=== PATIENT | female | born 1970 | race African-American/Black ===

== ENCOUNTER 2022-07-17 15:24 | Emergency (ER) | payer SELFPAY ==
[2022-07-17] MEDS ORDERED: AMLODIPINE 10 MG TAB ONE (15:48)
[2022-07-17 16:11] LABS: Absolute Lymphocytes (CBC) 2.1 K/uL (0.7-4.9); Lymphocytes % 38.1 % (15.3-44.8); MCV 85.8 fL (80-100); MPV 7.9 fL (7.6-11.3); RBC Red Blood Cell Count 4.66 M/uL (3.86-4.86)
[2022-07-17 16:27] LABS: Albumin 4.1 g/dL (3.4-5.0); Bilirubin Direct 0.1 mg/dL (0-0.2); Bilirubin Total 0.4 mg/dL (0.2-1.0); Magnesium 2.2 mg/dL (1.8-2.4); Potassium 3.4 mmol/L (3.5-5.1); Protein, Total 8.1 g/dL (6.4-8.2); Troponin High Sensitivity 5.7 pg/mL (<58.9)
--- NOTE | 2022-07-17 16:30 | RAD REPORT ---
EXAM DESCRIPTION: CT - Head Brain Wo Cont - 07/17/2022 4:17 pm CLINICAL HISTORY: headache, elevated blood pressure COMPARISON: No comparisons TECHNIQUE: All CT scans are performed using dose optimization technique as appropriate and may inclu de automated exposure control or mA/KV adjustment according to patient size. FINDINGS: No intracranial hemorrhage, hydrocephalus or extra-axial fluid collection.No areas of brai n edema or evidence of midline shift. The paranasal sinuses and mastoids are clear. The calvarium is intact. IMPRESSION: No acute intracranial abnormality.
--- NOTE | 2022-07-17 16:58 | RAD REPORT ---
EXAM DESCRIPTION: RAD - Chest Single View - 07/17/2022 4:22 pm CLINICAL HISTORY: CHEST PAIN Chest pain. COMPARISON: No comparisons FINDINGS: Portable technique limits examination quality. The lungs are grossly clear. The heart is normal in size. No displaced fractures. IMPRESSION: No acute intrathoracic process suspected.
--- NOTE | 2022-07-18 01:00 | ER ---
Nurse's Notes [facility] Name: Laila Weston Age: 51 yrs Sex: Female : 1970 Arrival Date: 07/17/2022 Time: 15:28 Bed IW1 Private MD: Diagnosis: Elevated blood-pressure reading, without diagnosis of hypertension Presentation: 07/17 15:42 Chief complaint: Patient states: High blood pressure - pt reports not having insurance ld1 so she has not filled HTN medications in over a year. C/O headache and nose bleed. Coronavirus screen: At this time, the client does not indicate any symptoms associated with coronavirus-19. Ebola Screen: No symptoms or risks identified at this time. Initial Sepsis Screen: Does the patient meet any 2 criteria? No. Patient's initial sepsis screen is negative. Does the patient have a suspected source of infection? No. Patient's initial sepsis screen is negative. Risk Assessment: Do you want to hurt yourself or someone else? Patient reports no desire to harm self or others. Onset of symptoms was July 17, 2022. 15:42 Method Of Arrival: Ambulatory ld1 15:42 Acuity: ANUPAM 3 ld1 Triage Assessment: 15:43 General: Appears in no apparent distress. comfortable, Behavior is calm, cooperative, ld1 appropriate for age. Pain: Complains of pain in face. Pain: Pain does not radiate. Pain currently is 9 out of 10 on a pain scale. Quality of pain is described as throbbing. EENT: No signs and/or symptoms were reported regarding the EENT system. Neuro: Level of Consciousness is awake, alert, obeys commands, Oriented to person, place, time, situation, Appropriate for age. Cardiovascular: Capillary refill < 3 seconds Patient's skin is warm and dry. Respiratory: Airway is patent Respiratory effort is even, unlabored. GI: Abdomen is flat, non-distended. : No signs and/or symptoms were reported regarding the genitourinary system. Derm: No signs and/or symptoms reported regarding the dermatologic system. Musculoskeletal: No signs and/or symptoms reported regarding the musculoskeletal system. 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 - Social history:: Smoking status: Patient denies any tobacco usage or history of. Patient/guardian denies using alcohol. Vital Signs: 15:42 BP 163 / 116; Pulse 89; Resp 18; Temp 98.1(O); Pulse Ox 98% on R/A; Weight 68.04 kg; ld1 Height 5 ft. 4 in. (162.56 cm); Pain 9/10; 15:42 Body Mass Index 25.75 (68.04 kg, 162.56 cm) ld1 ED Course: 15:28 Patient arrived in ED. rg4 15:30 Enzo Cheung PA is PHCP. [facility] 15:30 Brooks Gray MD is Attending Physician. [facility] 15:43 Triage completed. ld1 15:43 Arm band placed on right wrist. ld1 15:55 Inserted saline lock: 20 gauge in right antecubital area, using aseptic technique. ld1 Blood collected. 16:19 CT Head Brain wo Cont In Process Unspecified. EDMS 16:24 XRAY Chest (1 view) In Process Unspecified. EDMS Administered Medications: 15:49 Drug: amLODIPine 10 mg Route: PO; ld1 Outcome: 19:59 Discharge ordered by . ld1 19:59 Patient left the ED. ld1 Signatures: Dispatcher [employer] EDMS Enzo Cheung PA PA jmm Garcia, Rubi rg4 Georgia Higgins RN RN ld1 Corrections: (The following items were deleted from the chart) 15:43 15:43 Allergies: No Known Allergies; ld1 ld1
[2022-07-18 01:30] VITALS: BP 163/116; TEMP 98.1; O2SAT 98
--- NOTE | 2022-07-18 08:21 | EKG ---
Test Date: 2022-07-17 Test Time: 15:49:13 Suture Polisher: MARTIN MEASUREMENT RESULTS: Intervals: Rate: 88 AL: 150 QRSD: 94 QT: 388 QTc: 469 [place]: P: 67 AL: 150 QRS: -12 T: 47 INTERPRETIVE STATEMENTS: Normal sinus rhythm Incomplete right bundle branch block Borderline ECG No previous ECG available for comparison Electronically Signed On 07-18-22 08:19:47 CONTRACT DESIGNER by Aaron Mcclellan
--- NOTE | 2022-07-18 20:00 | EDPHYS ---
Physician Documentation [facility] Name: Laila Weston Age: 51 yrs Sex: Female : 1970 Arrival Date: 07/17/2022 Time: 15:28 Bed IW1 Private MD: ED Physician Brooks Gray HPI: 07/17 15:43 This 51 yrs old Black Female presents to ER via Ambulatory with complaints of High jmm Blood Pressure. 15:43 Onset: The symptoms/episode began/occurred gradually. Modifying factors: The symptoms jmm are aggravated by activity, The symptoms are alleviated by. Associated signs and symptoms: Pertinent positives: headache. The patient has experienced similar episodes in the past, a few times. The patient has not recently seen a physician, and does not have an established primary care provider. 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 - Social history:: Smoking status: Patient denies any tobacco usage or history of. Patient/guardian denies using alcohol. ROS: 15:43 Constitutional: Negative for fever, chills, and weight loss, Cardiovascular: Negative jmm for chest pain, palpitations, and edema, Respiratory: Negative for shortness of breath, cough, wheezing, and pleuritic chest pain. 15:43 Neuro: Positive for headache. 15:43 All other systems are negative. Exam: 15:43 Head/Face: atraumatic. Eyes: EOMI, no conjunctival erythema appreciated ENT: Moist jmm Mucus Membranes Neck: Trachea midline, Supple Chest/axilla: Normal chest wall appearance and motion. Cardiovascular: Regular rate and rhythm. No edema appreciated Respiratory: Normal respirations, no respiratory distress appreciated Abdomen/GI: Non distended Back: Normal ROM Skin: General appearance color normal 15:43 Constitutional: The patient appears alert, awake, uncomfortable. 15:43 Musculoskeletal/extremity: ROM: intact in all extremities. 15:43 Skin: Appearance: Color: normal in color. 15:43 Neuro: Motor: is normal. 15:43 Psych: Behavior/mood is pleasant, cooperative. Vital Signs: 15:42 BP 163 / 116; Pulse 89; Resp 18; Temp 98.1(O); Pulse Ox 98% on R/A; Weight 68.04 kg; ld1 Height 5 ft. 4 in. (162.56 cm); Pain 9/10; 15:42 Body Mass Index 25.75 (68.04 kg, 162.56 cm) ld1 MDM: 15:43 Patient medically screened. [facility] 17:00 Data reviewed: vital signs, nurses notes. Counseling: I had a detailed discussion with [facility] the patient and/or guardian regarding: the historical points, exam findings, and any diagnostic results supporting the discharge/admit diagnosis, lab results, radiology results, the need for outpatient follow up, to return to the emergency department if symptoms worsen or persist or if there are any questions or concerns that arise at home. 17:00 ED course: Headache has resolved. Patient states feeling much better. Patient will be [facility] reinitiated on her prior medication. Patient otherwise given strict return precautions. Patient understood and agrees plan of care.. 07/17 15:43 Order name: Basic Metabolic Panel; Complete Time: 16:31 [facility] 07/17 15:43 Order name: CBC with Diff; Complete Time: 16:18 [facility] 07/17 15:43 Order name: LFT's; Complete Time: 16:31 [facility] 07/17 15:43 Order name: Magnesium; Complete Time: 16:31 [facility] 07/17 15:43 Order name: NT PRO-BNP; Complete Time: 16:31 [facility] 07/17 15:43 Order name: PT-INR; Complete Time: 16:18 [facility] 07/17 15:43 Order name: Troponin HS; Complete Time: 16:31 [facility] 07/17 15:43 Order name: XRAY Chest (1 view); Complete Time: 17:00 [facility] 07/17 15:43 Order name: EKG; Complete Time: 15:44 [facility] 07/17 15:43 Order name: EKG - Nurse/Tech; Complete Time: 15:49 [facility] 07/17 15:43 Order name: IV Saline Lock; Complete Time: 15:55 [facility] 07/17 15:44 Order name: CT Head Brain wo Cont; Complete Time: 16:46 [facility] 07/17 15:43 Order name: Labs collected and sent; Complete Time: 15:55 [facility] 07/17 15:43 Order name: O2 Per Protocol; Complete Time: 15:55 [facility] 07/17 15:43 Order name: O2 Sat Monitoring; Complete Time: 15:55 [facility] Administered Medications: 15:49 Drug: amLODIPine 10 mg Route: PO; ld1 Disposition: 07/18 10:26 Co-signature as Attending Physician, Brooks Gray MD. rn Disposition Summary: 07/17/22 19:59 Discharge Ordered Location: Home ld1 Condition: Stable ld1 Diagnosis - Elevated blood-pressure reading, without diagnosis of hypertension ld1 Forms: - Medication Reconciliation Form ld1 - Thank You Letter ld1 - Antibiotic Education ld1 - Prescription Opioid Use ld1 Signatures: Dispatcher [employer] EDMS Enzo Cheung PA PA jmm Nieto, Roman, MD MD rn Dibbern, Lauren, RN RN ld1 Corrections: (The following items were deleted from the chart) 07/17 15:43 15:43 Allergies: No Known Allergies; ld1 ld1
== END 2022-07-17 19:59 | disposition home or self-care (01) ==
LOC: ER 15:24
DX: I10 Essential (primary) hypertension (principal); Z91.013 Allergy to seafood
CPT/HCPCS: 36415; 70450; 71045; 80048; 80076; 83735; 83880; 84484; 85025; 85610; 93005; 99284

== ENCOUNTER 2022-11-20 11:04 | Emergency (ER) | payer OTHER, SELFPAY ==
[2022-11-20 12:19] LABS: SARS-COV-2 RT PCR NEGATIVE (NEGATIVE)
--- NOTE | 2022-11-20 12:27 | RAD REPORT ---
EXAM DESCRIPTION: RAD - Chest Pa And Lat (2 Views) - 11/20/2022 12:20 pm CLINICAL HISTORY: cough, body aches, fever Chest pain. COMPARISON: <Comparisons> FINDINGS: Interstitial markings mildly prominent suggesting mild viral infection. The heart is andry l in size. There is a prominent wedge-shaped compression deformity midthoracic spine, probably old.
--- NOTE | 2022-11-20 13:02 | EDPHYS ---
Physician Documentation [facility] Name: Laila Weston Age: 51 yrs Sex: Female : 1970 Arrival Date: 11/20/2022 Time: 11:08 Bed 12 Private MD: ED Physician Karson Latham HPI: 11/20 12:55 This 51 yrs old Black Female presents to ER via Ambulatory with complaints of Fever, jmm Chest Congestion, bodyaches. 12:55 The patient reports fever. Onset: The symptoms/episode began/occurred gradually, 2 jmm week(s) ago. This is a 51 year old female with a history of htn that presents to the ED with complaints of cough, sob beginning approx 2 weeks ago with fever beginning last night. Denies vomiting. Denies chest pain. . Historical: - Allergies: 11:23 SHELLFISH; iw - PMHx: 11:23 Hypertensive disorder; iw - Immunization history:: Client reports receiving the 2nd dose of the Covid vaccine. - Social history:: Smoking status: Reported history of juuling and/or vaping. Patient uses street drugs, marijuana. ROS: 12:55 Constitutional: Positive for body aches, fever. jmm 12:55 Respiratory: Positive for cough, shortness of breath. 12:55 All other systems are negative. Exam: 12:55 Constitutional: This is a well developed, well nourished patient who is awake, alert, jmm and in no acute distress. Head/Face: atraumatic. Eyes: EOMI, no conjunctival erythema appreciated ENT: Moist Mucus Membranes Neck: Trachea midline, Supple Chest/axilla: Normal chest wall appearance and motion. Cardiovascular: Regular rate and rhythm. No edema appreciated 12:55 Abdomen/GI: Non distended Back: Normal ROM Skin: General appearance color normal 12:55 Respiratory: the patient does not display signs of respiratory distress, Respirations: normal, Breath sounds: are clear throughout. 12:55 Musculoskeletal/extremity: ROM: intact in all extremities. 12:55 Skin: Appearance: Color: normal in color. 12:55 Neuro: Motor: is normal. Vital Signs: 11:24 BP 128 / 93; Pulse 97; Resp 16; Temp 98.7; Pulse Ox 100% on R/A; Weight 65.77 kg; iw Height 5 ft. 4 in. ; Pain 3/10; 11:24 Body Mass Index 24.89 (65.77 kg, 162.56 cm) iw 11:24 Pain Scale: Adult MDM: 11:09 Patient medically screened. bs3 13:00 Differential diagnosis: bronchitis, pneumonia. Data reviewed: vital signs, nurses [facility] notes, lab test result(s), radiologic studies, plain films. I considered the following discharge prescriptions or medication management in the emergency department Medications were administered in the Emergency Department. See MAR. Independent interpretation of the following test(s) in the Emergency Department X-Ray: My interpretation is infiltrates noted. Counseling: I had a detailed discussion with the patient and/or guardian regarding: the historical points, exam findings, and any diagnostic results supporting the discharge/admit diagnosis, the need for outpatient follow up, to return to the emergency department if symptoms worsen or persist or if there are any questions or concerns that arise at home. 11/20 11:13 Order name: COVID-19/FLU A+B; Complete Time: 12:19 [facility] 11/20 11:20 Order name: Chest Pa And Lat (2 Views) XRAY; Complete Time: 12:29 [facility] Administered Medications: 12:25 Drug: Levalbuterol Inhalation 1.25 mg Route: Inhalation; Disposition Summary: 11/20/22 13:01 Discharge Ordered Location: Home [facility] Condition: Stable [facility] Diagnosis - Cough [facility] Followup: [facility] - With: Private Physician - When: 2 - 3 days - Reason: Recheck today's complaints, Continuance of care, Re-evaluation by your physician Discharge Instructions: - Discharge Summary Sheet [facility] - Cough, Adult [facility] Forms: - Medication Reconciliation Form [facility] - Thank You Letter [facility] - Antibiotic Education [facility] - Prescription Opioid Use [facility] - Work release form Prescriptions: - cefdinir 300 mg Oral capsule - take 1 capsule by ORAL route 2 times per day for 10 days; 20 capsule; Refills: [facility] 0, Product Selection Permitted - promethazine-DM 6.25-15 mg/5 mL Oral syrup - administer 5 milliliter by ORAL route every 4-6 hours As needed; 200 jmm milliliter; Refills: 0, Product Selection Permitted Signatures: Dispatcher [employer] Enzo Chance PA PA jmm Williams, Irene, RN RN iw Latham, Karson, MD MD bs3
--- NOTE | 2022-11-20 13:02 | ER ---
Nurse's Notes [facility] Name: Laila Weston Age: 51 yrs Sex: Female : 1970 Arrival Date: 11/20/2022 Time: 11:08 Bed 12 Private MD: Diagnosis: Cough Presentation: 11/20 11:22 Chief complaint: Patient states: aching, chills, cough X 2 weeks, fever yesterday, iw fatigue pain in lower back. Coronavirus screen: Client presents with at least one sign or symptom that may indicate coronavirus-19. Ebola Screen: Patient negative for fever greater than or equal to 101.5 degrees Fahrenheit, and additional compatible Ebola Virus Disease symptoms Patient denies exposure to infectious person. Patient denies travel to an Ebola-affected area in the 21 days before illness onset. No symptoms or risks identified at this time. 11:22 Method Of Arrival: Ambulatory iw 11:22 Initial Sepsis Screen: Does the patient meet any 2 criteria? No. Patient's initial iw sepsis screen is negative. Does the patient have a suspected source of infection? No. Patient's initial sepsis screen is negative. Risk Assessment: Do you want to hurt yourself or someone else? Patient reports no desire to harm self or others. Onset of symptoms was November 06, 2022. 11:22 Acuity: ANUPAM 4 iw Triage Assessment: 11:35 General: Appears in no apparent distress. Behavior is calm, cooperative. iw Historical: - Allergies: 11:23 SHELLFISH; iw - PMHx: 11:23 Hypertensive disorder; iw - Immunization history:: Client reports receiving the 2nd dose of the Covid vaccine. - Social history:: Smoking status: Reported history of juuling and/or vaping. Patient uses street drugs, marijuana. Screenin:15 [facility] ED Fall Risk Assessment (Adult) History of falling in the last 3 months, iw including since admission No falls in past 3 months (0 pts). Abuse screen: Denies threats or abuse. Denies injuries from another. Nutritional screening: No deficits noted. Tuberculosis screening: No symptoms or risk factors identified. Assessment: 11:30 General: Appears in no apparent distress. Behavior is calm, cooperative. Pain: Denies iw pain. Neuro: Level of Consciousness is awake, alert, obeys commands, Oriented to person, place, time, situation, Moves all extremities. Cardiovascular: Patient's skin is warm and dry. Respiratory: Respiratory effort is even, unlabored, Respiratory pattern is regular, symmetrical. Vital Signs: 11:24 BP 128 / 93; Pulse 97; Resp 16; Temp 98.7; Pulse Ox 100% on R/A; Weight 65.77 kg; iw Height 5 ft. 4 in. ; Pain 3/10; 11:24 Body Mass Index 24.89 (65.77 kg, 162.56 cm) iw 11:24 Pain Scale: Adult iw ED Course: 11:08 Patient arrived in ED. am2 11:11 Enzo Cheung PA is PHCP. [facility] 11:11 Karson Latham MD is Attending Physician. [facility] 11:23 Triage completed. iw 11:23 Arm band placed on. iw 11:30 Patient has correct armband on for positive identification. iw 11:30 COVID-19/FLU A+B Sent. zm 11:33 Nila Waller, RN is Primary Nurse. iw 12:21 Chest Pa And Lat (2 Views) XRAY In Process Unspecified. EDMS 13:15 No provider procedures requiring assistance completed. Patient did not have IV access iw during this emergency room visit. Administered Medications: 12:25 Drug: Levalbuterol Inhalation 1.25 mg Route: Inhalation; iw Medication: 11:30 VIS not applicable for this client. iw Outcome: 13:01 Discharge ordered by MD. m 13:15 Discharged to home ambulatory. iw 13:15 Condition: good 13:15 Discharge instructions given to patient, Instructed on discharge instructions, follow up and referral plans. Demonstrated understanding of instructions, follow-up care, medications, Prescriptions given X 2. 13:16 Patient left the ED. ap3 Signatures: Dispatcher [employer] EDMS Enzo Cheung PA PA jmm Williams, Irene, RN RN iw [place] am2 [place] RN RN ap3 Marge Razo Corrections: (The following items were deleted from the chart) 11/21 07:55 11/20 13:15 Discharge instructions given to patient, Instructed on discharge iw instructions, follow up and referral plans. Demonstrated understanding of instructions, follow-up care, medications, Prescriptions given X iw
[2022-11-20 14:00] VITALS: BP 128/93; TEMP 98.7; O2SAT 100
== END 2022-11-20 13:16 | disposition home or self-care (01) ==
LOC: ER 11:04
DX: R05.9 Cough, unspecified (principal); R50.9 Fever, unspecified; I10 Essential (primary) hypertension; Z20.822 Contact with and (suspected) exposure to COVID-19; Z91.013 Allergy to seafood
CPT/HCPCS: 0240U; 71046

== ENCOUNTER 2023-02-23 07:22 | Emergency (ER) | payer OTHER ==
--- OUTSIDE RECORDS SUMMARY | 2023-02-23 07:25 | XMS REPORT | Continuity of Care Document ---
:1970 Author Organization [facility] t Address [address] [place] [address] Care Team Providers Name Role Phone Unavailable Unavailable Unavailable Problems This patient has no known problems. Allergies, Adverse Reactions, Alerts This patient has no known allergies or adverse reactions. Medications This patient has no known medications. Procedures This patient has no known procedures. Encounters Start End Encounter Admission Attending Care Care Encounter Source Date/Time Date/Time Type Type Clinicians Facility Department ID 2023-01-04 2023-01-04 Outpatient [facility] [id number] [place] 09:35:21 09:35:21 [id number] F César 2023-01-03 2023-01-03 Outpatient [facility] [id number] Ryan 08:30:07 08:30:07 [id number] F César Results Test Description Test Time Test Comments Results Result Comments Source LIPID PANEL 2023-01-04 19:09:53 Test Item Value Reference Range Interpretation Comme nts CHOLESTEROL (test code = 2210) 205 MG/DL <200 H TRIGLYCERIDES (test code = 2232) 64 MG/DL <150 HDL CHOLESTEROL (test code = 85 MG/DL >39 2220) CALC LDL CHOL (test code = 2237) 105 MG/DL <100 H NOTE: CALCULATED LDL IS BASED ON BRO-MERCADO METHOD WHICHINCLUDES A DJUSTABLE TRIGLYCERIDE:VL DL CHOLESTEROL RATIO.THIS FACT OR VARIES BY MEASURED TRIGLY CERIDE AND NON-HDLCHOLESTE ROL CONCENTRATIONS WITH INCREASED CALCULATED LDL SEENIN HIGHER T RIGLYCERIDE OR LOWER NON-HDL S PECIMENS. FOR MOREINFORMATION , SEE CLIENT ANNOUNCEMENT AT [email or web address] RATIO LDL/HDL (test code = 1.24 RATIO <3.22 2238) COMPREHENSIVE METABOLIC [id number] 19:09:53 Test Item Value Reference Range Interpretation Comments GLUCOSE (test code = 100 MG/DL 70-99 H 2216) BUN (test code = 12 MG/DL 6-20 2207) CREATININE (test 0.66 MG/DL 0.60-1.30 code = 2213) eGFR (2020 CKD-EPI) 106 >60 (test code = 67100) ML/MIN/1.73 CALC BUN/CREAT (test 18 RATIO 6-28 code = 2235) SODIUM (test code = 143 MEQ/L [phone]) POTASSIUM (test code 4.3 MEQ/L 3.5-5.4 = 2227) CHLORIDE (test code 104 MEQ/L 95-107 = 2214) CARBON DIOXIDE (test 19 MEQ/L 19-31 code = 2205) CALCIUM (test code = 9.8 MG/DL 8.5-10.5 2208) PROTEIN, TOTAL (test 6.7 G/DL 6.1-8.3 code = 2228) ALBUMIN (test code = 4.4 G/DL 3.5-5.2 2200) CALC GLOBULIN (test 2.3 G/DL 1.9-3.7 code = 224) CALC A/G RATIO (test 1.9 RATIO 1.0-2.6 code = 223) BILIRUBIN, TOTAL 0.2 MG/DL See_Comment [Automated message] (test code = 2207) The syste [employer] which generated this result transmitted ref erence range: <=1.2. T he reference range was not used to int erpret this result as normal/abnormal . ALKALINE PHOSPHATASE 79 U/L 40-130 (test code = 2203) AST (test code = 20 U/L 9-40 2217) ALT (test code = 11 U/L 5-40 CPL francisco s 2218) important patho logy staff changes effective 11/01. New patholo gy staff will prov moriah uninterrupted, excellent patie nt care and clinic al consultation. S ee URL: [email or web address]. UNLE SS OTHERWISE INDIC ATED, ALL TESTING PER FORMED AT [facility] [employer], [address] [place]. [address] [place] [address] HAN AGUILAR DIRECTOR: Trevon LUTHER LUIS NUMBER [id number] CAP ACCREDITATION N O. [id number] HEPATITIS C [id number] 06:45:41 Test Item Value Reference Range Interpretation Comments HEPATITIS C ANTIBODY (test code NON-REACTIVE NON-REACTIVE = 4675) HIV 1/2 4TH GEN, RFLX [id number] 06:45:41 Test Item Value Reference Range Interpretation Comments HIV 1/2 4TH GEN, RFLX CONF (test NON-REACTIVE NON-REACTIVE code = 3514) HEMOGLOBIN [id number] 05:40:32 Test Item Value Reference Range Interpretation Comments HEMOGLOBIN A1c (test 6.1 % 4.2-5.6 H AMERIC AN DIABETES code = 80426) ASSOCIATION [employer] FOR HGB A1C: PREDIABETES/INC REASED RISK . . . . . . . 5.7 -6.4% DIAGNOSIS OF DI ABETES . . . . . . . . . >=6 .5% WITH CONFIRMATION OR APPROPRIATE SYMPTOMS NOTE: ASSAY MAY BE AFFECTED BY HEMOGLOBINOPATH IES (SICKLE CELL ANEMIA, S- C DISEASE, OTHERS) OR ADITI FICIALLY LOWERED BY DECR EASED RED CELL SURVIVAL ( HEMOLYTIC ANEMIAS, BLOOD LOSS, ETC.). CONSIDER ALTERN ATE TESTING OR LABORATORY C ONSULTATION. CBC W/AUTO DIFF WITH [id number] 04:44:44 Test Item Value Reference Range Interpretation Comments WBC (test code = 4.4 K/UL 3.5-11.0 1001) RBC (test code = 4.24 M/UL 3.80-5.40 1002) HEMOGLOBIN (test code 11.8 G/DL 11.5-15.5 = 1003) HEMATOCRIT (test code 36.7 % 34.0-45.0 = 1004) MCV (test code = 86.6 fL 80.0-99.0 1005) MCH (test code = 27.8 PG 25.0-33.0 1006) MCHC (test code = 32.2 G/DL 31.0-36.0 1007) RDW (test code = 13.4 % 11.5-15.0 1038) NEUTROPHILS (test 38.7 % code = 1008) LYMPHOCYTES (test 48.4 % code = 1010) MONOCYTES (test code 8.8 % = 1011) EOSINOPHILS (test 3.2 % code = 1012) BASOPHILS (test code 0.7 % = 1013) IMMATURE GRANULOCYTES 0.2 % (test code = 1036) NUCLEATED RBCS (test 0.0 /100 WBC'S See_Comment [Aut omated code = 1065) message] The sy stem which generated this result transmitted reference range : 0.0. The refere nce range was not u sed to interpret th is result as normal/abnormal . PLATELET COUNT (test 203 K/UL 130-400 code = 1015) ABSOLUTE NEUTROPHILS 1.71 K/UL 1.50-7.50 (test code = 1066) ABSOLUTE LYMPHOCYTES 2.14 K/UL 1.00-4.00 (test code = 1067) ABSOLUTE MONOCYTES 0.39 K/UL 0.20-1.00 (test code = 1068) ABSOLUTE EOSINOPHILS 0.14 K/UL 0.00-0.50 (test code = 1040) ABSOLUTE BASOPHILS 0.03 K/UL 0.00-0.20 (test code = 1069) ABS IMMATURE 0.01 K/UL 0.00-0.10 GRANULOCYTES (test code = 1020) ABS NUCLEATED RBCS 0.00 K/UL 0.00-0.11 (test code = 20251)
--- NOTE | 2023-02-23 08:21 | RAD REPORT ---
EXAM DESCRIPTION: CT - Head Brain Wo Cont - 02/23/2023 8:01 am CLINICAL HISTORY: DIZZINESS COMPARISON: Head Brain Wo Cont dated 07/17/2022 TECHNIQUE: Noncontrast head CT images were obtained without IV contrast. Multiplanar reformats were generated and reviewed. All CT scans are performed using dose optimization technique as appropriate and may include automated exposure control or mA/KV adjustment according to patient size. FINDINGS: No intracranial hemorrhage, mass, or edema. Midline structures are unremarkable. Normal ventricular caliber for age. Araya-white matter differentiation is preserved, without evidence of acute infarct. No abnormal extra- axial fluid collections. Mastoid air cells and visualized portions of the paranasal sinuses are clear. No acute bony findings. IMPRESSION: No evidence of an acute intracranial process.
[2023-02-23] MEDS ORDERED: MECLIZINE HCL 12.5 MG TAB ONE (09:07)
[2023-02-23] MEDS ORDERED: NA CHLORIDE 0.9% 1,000 ML ONE (09:08)
--- NOTE | 2023-02-23 09:26 | RAD REPORT ---
EXAM DESCRIPTION: MRI - Brain Wo Cont - 02/23/2023 8:56 am CLINICAL HISTORY: DIZZINESS COMPARISON: Head CT of the same day TECHNIQUE: Multiplanar multisequence MRI of the brain performed without IV contrast, utilizing rapid stroke protocol. FINDINGS: No evidence of acute infarct or other diffusion signal abnormality. No evidence of acute intracranial hemorrhage or findings to suggest abnormal extra-axial fluid collec tions. Ventricular caliber within normal for age. Midline structures are unremarkable. Scattered subcortical and deep white matter T2/FLAIR hyperintensities, nonspecific, but suggestive of chronic small vessel ischemic changes. No mass effect or midline shift. Mastoid air cells and paranasal sinuses are clear. IMPRESSION: No acute intracranial process. No evidence of ventriculomegaly or mass effect. Nonspecific few deep white matter T2 hyperintensities, most suggestive of chronic small vessel ischem ic changes.
--- NOTE | 2023-02-23 09:27 | RAD REPORT ---
EXAM DESCRIPTION: RADChest Single View02/23/2023 9:14 am CLINICAL HISTORY: dizziness COMPARISON: Chest Pa And Lat (2 Views) dated 11/20/2022; Chest Single View dated 07/17/2022 TECHNIQUE: Portable AP view of the chest. FINDINGS: The lungs are clear. No pneumothorax or effusion. The cardiomediastinal contours are unrem arkable. Surgical clips projecting over the right lung base, previously demonstrated to be within the right breast soft tissues. IMPRESSION: No acute cardiopulmonary process.
[2023-02-23 11:19] LABS: Absolute Lymphocytes (CBC) 1.9 K/uL (0.7-4.9); Hematocrit 40.1 % (36.0-45.0); Lymphocytes % 46.2 % (15.3-44.8); MCV 86.7 fL (80-100); MPV 7.6 fL (7.6-11.3); RBC Red Blood Cell Count 4.63 M/uL (3.86-4.86)
[2023-02-23 11:25] LABS: Protime INR 0.89
[2023-02-23 12:21] LABS: Albumin 3.9 g/dL (3.4-5.0); Bilirubin Direct 0.1 mg/dL (0-0.2); Bilirubin Indirect, Calculated 0.3 mg/dL (0.2-0.8); Bilirubin Total 0.4 mg/dL (0.2-1.0); Magnesium 2.2 mg/dL (1.6-2.4); Potassium 4.2 mEq/L (3.5-5.1); Troponin High Sensitivity 5.4 pg/mL (<58.9)
--- NOTE | 2023-02-23 13:04 | ER ---
Nurse's Notes [facility] Name: Laila Weston Age: 52 yrs Sex: Female : 1970 Arrival Date: 02/23/2023 Time: 07:22 Bed 6 Private MD: Diagnosis: Vertigo Presentation: 02/23 07:33 Chief complaint: Patient states: Dry cough, dizzy since 4 AM. Coronavirus screen: ll1 Vaccine status: Patient reports receiving the 2nd dose of the covid vaccine. Client denies travel out of the [place] in the last 14 days. cough unrelated to allergies, Client presents with at least one sign or symptom that may indicate coronavirus-19. Standard/surgical mask placed on the client. Ebola Screen: Patient denies travel to an Ebola-affected area in the 21 days before illness onset. Initial Sepsis Screen: Does the patient meet any 2 criteria? No. Patient's initial sepsis screen is negative. Does the patient have a suspected source of infection? Yes: Productive cough/pneumonia. Risk Assessment: Do you want to hurt yourself or someone else? Patient reports no desire to harm self or others. Onset of symptoms was February 23, 2023. 07:33 Method Of Arrival: Wheelchair ll1 07:33 Acuity: ANUPAM 3 ll1 Triage Assessment: 07:34 General: Appears in no apparent distress. Behavior is calm, cooperative, appropriate ll1 for age. Pain: Denies pain. Neuro: Reports dizziness. Respiratory: Reports cough that is dry. Historical: - Allergies: 07:26 SHELLFISH; ll1 - PMHx: 07:26 Hypertensive disorder; ll1 - Immunization history:: Adult Immunizations up to date. - Social history:: Smoking status: Patient denies any tobacco usage or history of. - Family history:: not pertinent. - Hospitalizations: : No recent hospitalization is reported. Screenin:26 [facility] ED Fall Risk Assessment (Adult) History of falling in the last 3 months, ko1 including since admission No falls in past 3 months (0 pts) Confusion or Disorientation No (0 pts) Intoxicated or Sedated No (0 pts) Impaired Gait No (0 pts) Mobility Assist Device Used Yes (1 pt) Altered Elimination No (0 pt) Score/Fall Risk Level 0 - 2 = Low Risk Oriented to surroundings, Maintained a safe environment, Educated pt \T\ family on fall prevention, incl call for assistance when getting out of bed, Assessed \T\ reinforced patient's understanding of fall precautions, Provided non-skid footwear, Hourly rounding (assess needs \T\ fall precautionary measures) done, Used ambulatory aids as needed (educated on \T\ assisted with), Used gait belt as appropriate. Abuse screen: Denies threats or abuse. Denies injuries from another. Nutritional screening: No deficits noted. Tuberculosis screening: No symptoms or risk factors identified. Assessment: 08:26 General: Appears in no apparent distress. comfortable, Behavior is calm, cooperative, ko1 appropriate for age. Pain: Denies pain. Neuro: Reports dizziness, since 4 am. Cardiovascular: Reports lightheadedness. Respiratory: No deficits noted. GI: No deficits noted. : No deficits noted. EENT: No deficits noted. Derm: No deficits noted. Musculoskeletal: No deficits noted. 09:44 Reassessment: Patient appears in no apparent distress at this time. No changes from ko1 previously documented assessment. Patient and/or family updated on plan of care and expected duration. Pain level reassessed. Patient is alert, oriented x 3, equal unlabored respirations, skin warm/dry/pink. Vital Signs: 07:25 BP 140 / 93; Pulse 72; Resp 18; Pulse Ox 99% ; ko1 07:33 BP 140 / 93; Pulse 75; Resp 16; Temp 98; Pulse Ox 97% ; Weight 62.6 kg; Height 5 ft. 4 ll1 in. ; Pain 0/10; 08:00 BP 131 / 90; Pulse 76; Resp 18; Pulse Ox 100% ; ko1 09:21 BP 146 / 101; Pulse 60; Resp 18; Pulse Ox 99% on R/A; ld1 09:44 BP 146 / 101; Pulse 68; Resp 16; Pulse Ox 99% ; ko1 11:58 BP 138 / 94; Pulse 72; Resp 18; Pulse Ox 100% ; ko1 07:33 Body Mass Index 23.69 (62.60 kg, 162.56 cm) ll1 07:33 Pain Scale: Adult ll1 ED Course: 07:25 Patient arrived in ED. im 07:26 Brooks Gray MD is Attending Physician. rn 07:26 Arm band placed on Patient placed in an exam room, on a stretcher. ll1 07:34 Triage completed. ll1 07:43 Georgia Fitzpatrick, RN is Primary Nurse. ld1 08:01 CT Head Brain wo Cont In Process Unspecified. EDMS 08:19 Magaly Gandhi, AMY is Primary Nurse. ko1 08:26 Patient has correct armband on for positive identification. Fall risk band placed. Bed ko1 in low position. Call light in reach. Side rails up X 1. Client placed on continuous cardiac and pulse oximetry monitoring. NIBP monitoring applied. color television console monitor on. Door closed. Noise minimized. Lights dimmed. Warm blanket given. 08:47 Brain Wo Cont MRI In Process Unspecified. EDMS 08:57 Inserted saline lock: 22 gauge in right antecubital area, using aseptic technique. ld1 Blood collected. 09:16 Chest Single View XRAY In Process Unspecified. EDMS 11:14 IV discontinued, intact, bleeding controlled, No redness/swelling at site. Pressure ko1 dressing applied. 11:14 Inserted saline lock: 22 gauge in left antecubital area, using aseptic technique. Blood ko1 collected. 13:03 Ozzy Benitez MD is Referral Physician. rn 13:16 No provider procedures requiring assistance completed. IV discontinued, intact, ko1 bleeding controlled, No redness/swelling at site. Pressure dressing applied. Administered Medications: 09:05 Drug: Meclizine PO 50 mg Route: PO; ld1 12:41 Follow up: Response: No adverse reaction ko1 09:05 Drug: NS 0.9% IV 1000 ml Route: IV; Rate: 1000 ml; Site: right antecubital; ld1 12:41 Follow up: IV Status: Completed infusion; IV Intake: 1000ml ko1 Medication: 08:26 VIS not applicable for this client. ko1 Intake: 12:41 IV: 1000ml; Total: 1000ml. ko1 Outcome: 13:03 Discharge ordered by . rn 13:16 Discharged to home ambulatory. ko1 13:16 Condition: stable 13:16 Discharge instructions given to patient, Instructed on discharge instructions, follow up and referral plans. Demonstrated understanding of instructions, follow-up care, medications, Prescriptions given X 1. 13:25 Patient left the ED. ko1 Signatures: Dispatcher [employer] EDMS Brooks Gray MD MD rn Lewis, Lynsay, RN RN [facility] Georgia Fitzpatrick RN RN [email or web address] Magaly Gandhi RN RN ko1 Barbara Garcia Corrections: (The following items were deleted from the chart) 08:32 08:26 Pain: Denies pain. ko1 ko1
--- NOTE | 2023-02-23 13:04 | EDPHYS ---
Physician Documentation [facility] Name: Laila Weston Age: 52 yrs Sex: Female : 1970 Arrival Date: 02/23/2023 Time: 07:22 Bed 6 Private MD: ED Physician Brooks Gray HPI: 02/23 09:25 This 52 yrs old Black Female presents to ER via Wheelchair with complaints of Dizziness.rn 09:25 The patient presents with feeling off balance, sense of spinning. Onset: The rn symptoms/episode began/occurred this morning. Modifying factors: The symptoms are alleviated by holding head still, the symptoms are aggravated by movement of head. Associated signs and symptoms: Pertinent negatives: blurred vision, chest pain, focal weakness, head injury, headache, numbness, seizure, shortness of breath, syncope. Severity of symptoms: At their worst the symptoms were moderate in the emergency department the symptoms have improved. The patient has not experienced similar symptoms in the past. Pt reports felt fine last night, woke up this morning and attempted to get out of bed, hit with dizziness, sensation of spinning, assoc with nausea, improves when lays down and doesn't move, has never happened before. No focal neuro complaint otherwise. NO chest pain. No head injury. No vision or speech changes. Feels better but has not resolved. . Historical: - Allergies: 07:26 SHELLFISH; ll1 - PMHx: 07:26 Hypertensive disorder; ll1 - Immunization history:: Adult Immunizations up to date. - Social history:: Smoking status: Patient denies any tobacco usage or history of. - Family history:: not pertinent. - Hospitalizations: : No recent hospitalization is reported. ROS: 09:25 Constitutional: Negative for fever, chills, and weight loss, Eyes: Negative for injury, rn pain, redness, and discharge, Neck: Negative for injury, pain, and swelling, Cardiovascular: Negative for chest pain, palpitations, and edema, Respiratory: Negative for shortness of breath, cough, wheezing, and pleuritic chest pain, Abdomen/GI: Negative for abdominal pain, vomiting, diarrhea, and constipation, Back: Negative for injury and pain, MS/Extremity: Negative for injury and deformity, Skin: Negative for injury, rash, and discoloration, Neuro: Negative for headache, weakness, numbness, tingling, and seizure. Exam: 08:42 ECG was reviewed by the Attending Physician. rn 09:25 Constitutional: This is a well developed, well nourished patient who is awake, alert, rn and in no acute distress. Head/Face: Normocephalic, atraumatic. Eyes: Pupils equal round and reactive to light, extra-ocular motions intact. Periorbital areas with no swelling, redness, or edema. Cardiovascular: Regular rate and rhythm. No pulse deficits. Respiratory: No increased work of breathing, no retractions or nasal flaring. Skin: Warm, dry MS/ Extremity: Pulses equal, no cyanosis. Neuro: Awake and alert, GCS 15, oriented to person, place, time, and situation. Cranial nerves II-XII grossly intact. Motor strength 5/5 in all extremities. Sensory grossly intact. Cerebellar exam normal. Reproducible dizziness when laying down and moving head to left. Vital Signs: 07:25 BP 140 / 93; Pulse 72; Resp 18; Pulse Ox 99% ; ko1 07:33 BP 140 / 93; Pulse 75; Resp 16; Temp 98; Pulse Ox 97% ; Weight 62.6 kg; Height 5 ft. 4 ll1 in. ; Pain 0/10; 08:00 BP 131 / 90; Pulse 76; Resp 18; Pulse Ox 100% ; ko1 09:21 BP 146 / 101; Pulse 60; Resp 18; Pulse Ox 99% on R/A; ld1 09:44 BP 146 / 101; Pulse 68; Resp 16; Pulse Ox 99% ; ko1 11:58 BP 138 / 94; Pulse 72; Resp 18; Pulse Ox 100% ; ko1 07:33 Body Mass Index 23.69 (62.60 kg, 162.56 cm) ll1 07:33 Pain Scale: Adult ll1 MDM: 07:26 Patient medically screened. rn 13:01 Differential diagnosis: cardiac arrhythmia, generalized weakness, hypovolemia, rn idiopathic dizziness, TIA, vertigo. Data reviewed: vital signs, nurses notes, lab test result(s), radiologic studies, CT scan, MRI, and as a result, I will discharge patient. Counseling: I had a detailed discussion with the patient and/or guardian regarding: the historical points, exam findings, and any diagnostic results supporting the discharge/admit diagnosis, lab results, radiology results, the need for outpatient follow up, to return to the emergency department if symptoms worsen or persist or if there are any questions or concerns that arise at home. Response to treatment: the patient's symptoms have markedly improved after treatment, and as a result, I will discharge patient. Special discussion: I discussed with the patient/guardian in detail that at this point there is no indication for admission to the hospital. It is understood, however, that if the symptoms persist or worsen the patient needs to return immediately for re-evaluation. Based on the history and exam findings, there is no indication for further emergent testing or inpatient evaluation. I discussed with the patient/guardian the need to see the neurologist for further evaluation of the symptoms. 02/23 07:46 Order name: Basic Metabolic Panel; Complete Time: 13:02/23 07:46 Order name: CBC with Diff; Complete Time: 13:02/23 07:46 Order name: Hepatic Function; Complete Time: 13:02/23 07:46 Order name: Magnesium; Complete Time: 13:02/23 07:46 Order name: Protime (+inr); Complete Time: 13:02/23 07:46 Order name: Ptt, Activated; Complete Time: 13:02/23 07:46 Order name: Troponin High Sensitivity; Complete Time: 13:02/23 07:46 Order name: CT Head Brain wo Cont; Complete Time: 08:42 02/23 07:46 Order name: Chest Single View XRAY; Complete Time: 09:28 02/23 07:46 Order name: Brain Wo Cont MRI; Complete Time: 09:28 02/23 07:46 Order name: EKG; Complete Time: 07:46 02/23 07:46 Order name: Cardiac monitoring; Complete Time: 07:58 02/23 07:46 Order name: EKG - Nurse/Tech; Complete Time: 08:24 02/23 07:46 Order name: IV Saline Lock; Complete Time: 08:57 02/23 07:46 Order name: Labs collected and sent; Complete Time: 08:57 02/23 07:46 Order name: O2 Per Protocol; Complete Time: 07:58 02/23 07:46 Order name: O2 Sat Monitoring; Complete Time: :58 rn EC:42 Rate is 71 beats/min. Rhythm is regular. QRS [place] is Normal. PA interval is normal. QRS rn interval is normal. QT interval is normal. No Q waves. T waves are Normal. No ST changes noted. Clinical impression: NSR w/ Non-specific ST/T Changes. Interpreted by me. Administered Medications: 09:05 Drug: Meclizine PO 50 mg Route: PO; ld1 12:41 Follow up: Response: No adverse reaction ko1 09:05 Drug: NS 0.9% IV 1000 ml Route: IV; Rate: 1000 ml; Site: right antecubital; ld1 12:41 Follow up: IV Status: Completed infusion; IV Intake: 1000ml ko1 Disposition Summary: 02/23/23 13:03 Discharge Ordered Location: Home rn Problem: new rn Symptoms: have improved rn Condition: Stable rn Diagnosis - Vertigo rn Followup: rn - With: Ozzy Benitez MD - When: As needed - Reason: Recheck today's complaints, Re-evaluation by your physician Discharge Instructions: - Discharge Summary Sheet rn - Vertigo rn Forms: - Medication Reconciliation Form rn - Thank You Letter rn - 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
[2023-02-23 13:32] VITALS: TEMP 98
[2023-02-23 13:39] VITALS: BP 138/94; O2SAT 100
--- NOTE | 2023-02-25 14:26 | EKG ---
Test Date: 2023-02-23 Test Time: 08:26:14 Gas Operations Analyst: GENET MEASUREMENT RESULTS: Intervals: Rate: 71 MA: 156 QRSD: 94 QT: 418 QTc: 454 [place]: P: 53 MA: 156 QRS: -6 T: 39 INTERPRETIVE STATEMENTS: Normal sinus rhythm Septal infarct, age undetermined Abnormal ECG Compared to ECG 07/17/2022 15:49:13 Myocardial infarct finding now present Incomplete right bundle-branch block no longer present Electronically Signed On 02-25-23 14:24:12 CDT by Ramón Leyva
== END 2023-02-23 13:25 | disposition home or self-care (01) ==
LOC: ER 07:22
DX: R42 Dizziness and giddiness (principal); I10 Essential (primary) hypertension; Z91.013 Allergy to seafood
CPT/HCPCS: 96361; 93005; 85025; 80048; 36415; 83735; 85610; 80076; 85730; 84484; 70450; 71045; 70551; 96360; 99285; J8597; J7030